=== PATIENT | female | born 1985 | race Caucasian/White ===

== ENCOUNTER → 2016-10-23 | Outpatient (CLI) | payer BC ==
--- NOTE | 2016-10-23 14:52 | MAMMOGRAPHY REPORT ---
ULTRASOUND OF LEFT BREAST: 10/23/2016 CLINICAL HISTORY: The patient is currently 8 weeks . She reports an area of left breast joyce n for approximately 2-3 months. She denies any associated palpable lumps or nipple discharge. COMPARISON: No prior exams were available for comparison. TECHNIQUE: Real-time targeted ultrasound of the left breast was performed. FINDINGS: Real-time, high resolution targeted ultrasound was performed of the area of pain in the l eft breast. The patient could not pinpoint the exact location of pain today as she reports that she is not having any pain currently, however, she pointed to the left breast at approximately 4:00 whe n asked where her pain typically occurs. Ultrasound of this region demonstrates sonographically nor mal tissue without evidence of a mass or other suspicious sonographic abnormality. IMPRESSION: ACR BI-RADS CATEGORY 1: NEGATIVE No sonographic abnormality in the left breast at approximately 4:00, at the site of pain pointed out by the patient. There is no sonographic evidence of malignancy. Recommend clinical follow-up. The patient was verbally notified of the results. Oralia Martines M.D. ah/:10/23/2016 11:33:45 Aquaculture Worker: Oralia Martines MD, [facility] letter sent: Normal 1/2 BI-RADS Code: ACR BI-RADS Category 1: Negative
== END | disposition home or self-care (01) ==
LOC: C.MAMM 11:05
PROVIDERS: ATTEND Physician Assistant
DX: N64.4 Mastodynia (principal)